=== PATIENT | male | born 2000 ===

== ENCOUNTER 2024-03-10 12:14 | Emergency (ER) | payer BC, SELFPAY ==
[2024-03-10 12:39] VITALS: BP 110/73; PULSE 70; RESP 16; TEMP 36.6; O2SAT 98; BMI 25.1
[2024-03-10 13:33] LABS: PCR FLU A POSITIVE PCR FLU A (Negative); PCR FLU B Negative PCR FLU B (Negative); PCR RSV Negative PCR RSV (Negative); SARS PCR* Negative SARS-CoV-2 (Negative)
--- NOTE | 2024-03-10 13:44 | ED.GENADULT ---
HPI - General Adult General Date Seen: 03/10/24 Chief complaint: Fever Stated complaint: Fever, cough for 5 days Time Seen by Provider: 03/10/24 13:40 Source: patient Mode of arrival: ambulatory Limitations: no limitations History of Present Illness HPI narrative: Patient is a 24-year-old male presenting to emergency department for upper respiratory symptoms. For the past 5 days he has been having intermittent fevers, cough, congestion and sinus pain. Has been taking DayQuil NyQuil along with ibuprofen which has been improving his symptoms. Had a temperature 100? earlier today. Denies chest pain. Admits to very mild shortness of breath. Denies abdominal pain, headache, vision changes, lightheadedness, dizziness, weakness, numbness. Does not aware of any sick contacts. Denies any medical problems. No other concerns noted Related Data Home Medications Medication Instructions Recorded Confirmed No Known Home Medications 03/10/24 03/10/24 Allergies Allergy/AdvReac Type Severity Reaction Status Date / Time No Known Drug Allergies Allergy Verified 03/10/24 12:39 Review of Systems Status of ROS: Reports: 10 or more systems reviewed and unremarkable except as noted in History and below Exam Narrative: Exam Narrative: Const: Well-nourished, Well-developed, in no distress Eyes: PERRL, no conjunctival injection, and symmetrical lids HENT: Atraumatic external nose and ears. Moist mucous membranes. Neck: Symmetric, trachea midline, No thyromegaly. CVS: RRR, No murmurs or gallops. Peripheral pulses 2+ and equal in all extremities RESP: Unlabored respiratory effort. Clear to auscultation bilaterally. GI: Nontender/Nondistended, No rebound or guarding. MSK:Extremities w/o deformity, Normal Active ROM Skin: Warm, Dry. No rashes or lesions. Neuro: Normal Muscle tone, No focal neurological deficits. Psych: Awake, Alert, & Oriented x3. Appropriate mood and affect. Const: Vital Signs, click to edit/add: Vital Signs - 24 hr 03/10/24 12:39 Temperature 97.9 F Pulse Rate [Pulse Oximeter] 70 Respiratory Rate 16 Blood Pressure [Ri ght Upper Arm] 110/73 Pulse Oximetry 98 Oxygen Delivery Me thod Room Air Course Vital Signs Vital signs: Initial Vital Signs Temperature 97.9 F 03/10/24 12:39 Temperature Source Temporal Artery Scan 03/10/24 12:39 Pulse Rate 70 03/10/24 12:39 Respiratory Rate 16 03/10/24 12:39 Blood Pressure 110/73 03/10/24 12:39 Blood Pressure Mean 85 03/10/24 12:39 Blood Pressure Position Sitting 03/10/24 12:39 Pulse Oximetry 98 03/10/24 12:39 Oxygen Delivery Method Room Air 03/10/24 12:39 Vital Signs Temperature 97.9 F 03/10/24 12:39 Pulse Rate 70 03/10/24 12:39 Respiratory Rate 16 03/10/24 12:39 Blood Pressure 110/73 03/10/24 12:39 Pulse Oximetry 98 03/10/24 12:39 Oxygen Delivery Method Room Air 03/10/24 12:39 Temperature 97.9 F 03/10/24 12:39 Pulse Rate 70 03/10/24 12:39 Respiratory Rate 16 03/10/24 12:39 Blood Pressure 110/73 03/10/24 12:39 Pulse Oximetry 98 03/10/24 12:39 Oxygen Delivery Method Room Air 03/10/24 12:39 Medical Decision Making MDM Narrative Medical decision making narrative: Show me patient is a 24-year-old male presenting for flu-like symptoms. COVID/flu/RSV test was ordered. He came back flu A positive. He is out of the window for treatment with Tamiflu. He is otherwise doing well with normal vital signs and I do not believe lab work or imaging is necessary. Lungs sound clear to auscultation. He is otherwise doing well and can be discharged home at this time. He is agreeable to this plan. Lab Data Labs: Lab Results 03/10/24 Range/Units 12:40 SARS-CoV-2 (PCR) Negative SARS-CoV-2 (Negative) Influenza Type A (PCR) POSITIVE PCR FLU A A (Negative) Influenza Type B (PCR) Negative PCR FLU B (Negative) RSV (PCR) Negative PCR RSV (Negative) Discharge Plan Discharge Clinical Impression: Influenza Patient Disposition: Home, Self-Care Condition: Stable Instructions: Influenza (DC) Additional Instructions: You can return to work as long as to go 24 hours without having a fever over 100.4 and are not requiring Tylenol and ibuprofen to keep the fever down. Return to emergency department for new or worsening symptom Prescriptions: No Action No Known Home Medications Follow Up/Referrals: Provider,Not a Local [Primary Care Provider] - Stand Alone Forms: [employer] Info Instructions
--- OUTSIDE RECORDS SUMMARY | 2024-03-10 13:50 | XMS_ITS | Clinical Summary ---
Author Name Unknown Organization [facility] Address [place], [place] [address] Care Team Providers Care Kitchen Utility Associate Name Role Phone Pcp, No Primary Care Provider Unavailabl e Allergies No known active allergies Medications No known medications Active Problems Problem Noted Date Diagnosed Date Asthma, intermittent 09/08/2011 Attention deficit disorder with hyperactivity(31 4.01) 06/04/2009 Unspecified disturbance of conduct 05/03/2009 Resolved Problems Problem Noted Date Diagnosed Date Resolved Date Acute bronchospasm 07/16/2010 1 Encounters Date Type Department Care Team Description 12/18/2023 8:45 AM [employer] Office Visit [facility] [address] [place] [address] Katy Estevez, Nose Problem (consistent nosebleeds 5x times a week for the last several months. Able to get nosebleeds under control within 5-10 minutes. ) 12/18/2023 Travel from Last 3 Months Immunizations Name Administration Dates Next Due DTaP 05/17/2007, 3,2002,07/02,2002,2002 HIB-HepB (Comvax) 02/03/2003,2002,04/04/20 02 HPV 9 (Gardasil 9) 05/09/2019 Hepatitis A (Peds) 05/09/2019,06/28/2014 Human Papilloma Virus Vaccine 06/28/2014 Inactivated Polio Vaccine 05/17/2007,01/2002,2002,04/04 MMR 05/17/2007,07/18/2003 Meningococcal Vaccine (Menveo) 05/09/2019,2013 Oral Polio Vaccine 2002 Pneumococcal conj 7-Valent (Prevnar 7) 0 02/03/2003,2002,2002,04/04 Tdap 06/28/2014 Varicella Vaccine 05/17/2007,02/03/2003 Family History Medical History Relation Name Comments Asthma Brother Good Health Father Good Health Mother Good Health Sister 1 Good Health Sister 2 Good Health Sister 3 Relation Name Status Comments Brother Alive Father Alive Mother Alive Sister 1 Alive Sister 2 Alive Sister 3 Alive Social History Tobacco Use Types Packs/Day Years Used Date Smoking Tobacco: Passive Smo ke Exposure - Never Smoker Smokeless Tobacco: Never Tobacco Cessation:Counseling Given: Yes Comments:step father smokes outside Alcohol Use Standard Drinks/Week Comments Not Currently 0 (1 standard drink = 0.6 oz pur e alcohol) patron PHQ-2 Answer Date Recorded PHQ-2 Score 0 05/09/2019 Social Connections Answer Date Recorded Frequency of Communication with Friends and Fami ly Not on file 12/18/2023 Financial Resource Strain Answer Date R ecorded Difficulty of Paying Living Expenses Not on file 11/30/2021 Difficulty of Paying Living Expenses Not on file 11/30/2021 Sex and Gender Information Value Date Recorded Sex Assigned at Not on file Gender Identity Not on file Sexual Orientation Not on file Obstetrics History Last Filed Vital Signs Vital Sign Reading Time Taken Comments Blood Pressure 122/60 12/18/2023 8:54 AM [employer] Pulse 74 12/18/2023 8:54 AM [employer] Temperature 36.6 ??C (97.9 ??F) 02/08/2022 1:54 AM CS T Respiratory Rate 18 02/08/2022 1:54 AM [employer] Oxygen Saturation 100% 12/18/2023 8:54 AM [employer] Inhaled Oxygen Concentration - - Weight 82.1 kg (181 lb) 12/18/2023 8:54 AM [employer] Height 182.9 cm (6') 02/08/2022 1:54 AM [employer] Body Mass Index - - Plan of Treatment Health Maintenance Due Date Last Done Comments HIV for age 15-65 2017 BMI (ht and wt on same day) for age 18+ 02/02/2020 Hepatitis C screening for age 18-79 02/02/2020 Depression screening for age 12+ 05/09/2020 05/09/2019 COVID-19 vaccine series ( season) 2023 01/09/2022, 12/12/2021 Tetanus booster 06/28/2024 06/28/2014 Influenza for age 9-49 07/31/2024 Pneumococcal series for age 6-64 Aged Out 02/03/2003, 2002, 2002, Additional history exists No longer eligible based on patient's age to complete this topic Tdap Completed 06/28/2014 HPV series for age 9-26 Completed 05/09/2019, 06/28 Care Teams Kitchen Utility Associate Relationship Specialty Start Date End Date Pcp, No . PCP - General 03/23/17
[2024-03-10 14:01] VITALS: PULSE 66; RESP 18; O2SAT 99
== END 2024-03-10 14:03 | disposition home or self-care (01) ==
PROVIDERS: Emergency Provider Student in an Organized Health Care Education/Training Program
DX: J09.X2 Influenza due to identified novel influenza A virus with other respiratory manifestations (principal)
CPT/HCPCS: 87631; 99282; 99283